=== PATIENT | female | born 1950 | race Caucasian/White ===

== ENCOUNTER 2017-07-03 06:25 | Emergency (ER) | payer MEDICARE ==
[~2017-07-03] VITALS: Ht 170.2 cm; Wt 79.0 kg
[2017-07-03 06:37] VITALS: Ht 170.2 cm; Wt 79.0 kg
--- NOTE | 2017-07-03 06:48 | ERD ---
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 The facility does not report any other symptoms or issues. The paramedics were called for transfer for G-tube replacement. The EMS personnel reportedly was not able to find a nurse to give report. The patient only came with a facesheet. The patient's vitals were stable en route. History and physical is limited secondary to patient's altered mentation ROS All systems reviewed and are negative except as per history of present illness. Medications Home Meds Reported Medications Mineral Oil* (Fleet* Mineral Oil Enema) 133 Ml Oil, 133 ML MI NEEDED Y for CONSTIPATION, ENEMA 07/03/17 Magnesium Hydroxide* (Milk Of Magnesia*) 400 Mg/5 Ml Oral.susp, 30 ML GTB QHS Y for CONSTIPATION, ML 07/03/17 Bisacodyl* (Dulcolax*) 5 Mg Tablet.dr, 10 MG GTB Q48H Y for CONSTIPATION, TAB 07/03/17 Calcium Carbonate (Oysco-500) 500 Mg Tablet, 500 MG PO BID, TAB 07/03/17 Alendronate Sodium* (Fosamax*) 70 Mg Tablet, 70 MG PO Q7D, #4 TAB 07/03/17 Tizanidine Hcl* (Tizanidine Hcl*) 4 Mg Tablet, 4 MG GTB DAILY, TAB 07/03/17 Multivitamins* (Theragran*) 1 Tab Tab, 1 TAB GTB DAILY, TAB 07/03/17 Acetaminophen* (Acetaminophen* Susp) 160 Mg/5 Ml Oral.susp, 320 MG GTB BID Y for PAIN OR TEMP ABOVE 38C, ML 07/03/17 Allergies Allergies: Coded Allergies: divalproex sodium (Verified Allergy, Severe, 07/03/17) PMhx/Soc Medical and Surgical Hx: Unable to obtain History of Surgery: Yes (gtube) Hx Neurological Disorder: Yes ([place] disease) Hx Respiratory Disorders: Yes (Aspiration) Hx Cardiac Disorders: No Hx Psychiatric Problems: Yes (Dementia) Hx Miscellaneous Medical Probl: Yes (osteoporosis, dysphagia, nonambulatory) Hx Alcohol Use: No Hx Substance Use: No Hx Tobacco Use: No Smoking Status: Never smoker FmHx Able to obtain secondary to patient mentation Physical Exam Vitals Vital Signs Date Time Temp Pulse Resp B/P Pulse Ox O2 Delivery O2 Flow Rate FiO2 07/03/17 13:12 97.5 73 17 125/71 97 Room Air 07/03/17 08:56 97.5 66 17 124/70 97 Room Air 07/03/17 06:37 97.5 77 17 152/70 97 Physical Exam Const: No apparent distress, well-developed, well-nourished Head: Normocephalic, Atraumatic Eyes: Normal Conjunctiva. Extraocular movements intact. Pupils equal, round and reactive to light ENT: Normal External Ears, Nose. Dry mucous membranes. Resp: Clear to auscultation bilaterally, No wheezes, rales or rhonchi Cardio: Regular rate and rhythm. No murmurs, rubs or gallops Abd: Soft, non tender, non distended. G-tube removed. No erythema or edema or induration or purulence around the site. Normal bowel sounds Skin: No petechiae or rashes Back: No midline tenderness. No CVA tenderness Ext: No cyanosis, or edema. Dry skin. Neur: Spastic paresis. Results 24 hrs Current Medications Medications (Trade) Dose Ordered Sig/Margo Route PRN Reason Start Time Stop Time Status Last Admin Dose Admin Diatrizoate Meglum/ Diatrizoate Sod (Gastrografin 66-10 Solution) 30 ml ONCE ONCE PO 07/03/17 09:00 07/03/17 09:01 DC Diatrizoate Meglum/ Diatrizoate Sod (Gastrografin 66-10 Solution) 120 ml STK-MED ONCE .ROUTE 07/03/17 09:10 07/03/17 09:11 DC Procedures/MDM MDM The patient's presentation warrants further investigation. The G tube was replaced in the ER by myself. An xray will be obtained to evaluated for placement. IMAGING G-tube gastrographin study FINDINGS: The gastrostomy tube is present with the tip in the stomach. Contrast also enters the duodenum and proximal small bowel. There is no evidence of obstruction. There are no abnormal calcifications overlying the urinary tracts. The osseus structures are unremarkable. IMPRESSION: The gastrostomy tube is in the stomach. Electronically viewed and signed by .Pola Spain MD, MD on 07/03/2017 12:40 TREATMENT/DISPOSITION The g-tube was successfully placed in the ER. At this time, I feel that the patient stable for discharge. The patient will need follow-up with his primary care physician in 2-3 days. The patient will be given strict precautions with which to return to the emergency department. The patient's blood pressure was elevated at greater than 120/80 while in the emergency department. The patient was otherwise stable with no evidence of hypertensive urgency or emergency or end organ damage. The patient does not require admission for blood pressure control. I have discussed with the patient the risks of hypertension. I have advised the patient to follow up with the primary care physician for outpatient monitoring and treatment for hypertension in 2-3 days. I have instructed the patient to return to the ER for any new or worsening symptoms including chest pain, shortness of breath, headache, blurred vision, confusion, nausea, vomiting or LOC. Disclaimer: Inadvertent spelling and grammatical errors are likely due to EHR/ dictation software use and do not reflect on the overall quality of patient care. Note that the electronic time recorded on this note does not necessarily reflect the actual time of the patient encounter. Departure Diagnosis: Primary Impression: Encounter for feeding tube placement Condition: ROQUE Graham MD Jul 03, 2017 06:48
[2017-07-03] MEDS ORDERED: DIATR MEGLU/DIATRIZOATE SODIUM 30 ML SOLUTION PO ONE (09:00)
[2017-07-03] MEDS ORDERED: DIATR MEGLU/DIATRIZOATE SODIUM 120 ML BTL ONE (09:10)
[2017-07-03] MEDS ORDERED: MULTI GTB (09:57)
[2017-07-03] MEDS ORDERED: ACET160O41 GTB (09:57)
[2017-07-03] MEDS ORDERED: CALC500T11 PO (09:58)
[2017-07-03] MEDS ORDERED: ALEN70TA30 PO (09:58)
[2017-07-03] MEDS ORDERED: TIZA4TAB GTB (09:58)
[2017-07-03] MEDS ORDERED: BISA-57 GTB (09:59)
[2017-07-03] MEDS ORDERED: MINE133E23 PR (10:00)
[2017-07-03] MEDS ORDERED: MAGN400O4 GTB (10:00)
--- NOTE | 2017-07-03 12:41 | RADRPT ---
PROCEDURE: XR limited upper GI series. CLINICAL INDICATION: Check gastrostomy tube position. TECHNIQUE: AP supine abdomen x-ray obtained following injection of 30 ml of Gastrografin into the gastrostomy tube. COMPARISON: None. FINDINGS: The gastrostomy tube is present with the tip in the stomach. Contrast also enters the duodenum and p roximal small bowel. There is no evidence of obstruction. There are no abnormal calcifications overlying the urinary tracts. The osseus structures are unremarkable. IMPRESSION: 1. The gastrostomy tube is in the stomach. RPTAT: QQ .Pola Spain MD, MD Date Time Electronically viewed and signed by .Pola Spain MD, on 07/03/2017 12:40 .R/
[2017-07-03 13:12] VITALS: BP 125/71; PULSE 73; RESP 17; TEMP 97.5
== END 2017-07-03 14:21 | disposition home or self-care (01) ==
LOC: E/R 06:25
DX: Z43.1 Encounter for attention to gastrostomy (principal)
CPT/HCPCS: 74240